=== PATIENT | female | born 2000 | race Caucasian/White ===

== ENCOUNTER 2024-03-28 20:44 | Emergency (ER) | payer BC ==
[2024-03-28 22:07] LABS: APPEARANCE,URINE CLEAR; BILIRUBIN,URINE NEGATIVE (NEGATIVE); COLOR,URINE YELLOW; GLUCOSE,URINE NEGATIVE (NEGATIVE); KETONES,URINE NEGATIVE (NEGATIVE); LEUKOCYTE ESTERASE,URINE NEGATIVE (NEGATIVE); NITRITE,URINE POSITIVE (NEGATIVE); OCCULT BLOOD,URINE NEGATIVE (NEGATIVE); PROTEIN,URINE NEGATIVE (NEGATIVE); UROBILINOGEN,URINE 0.2 EU/dL (<2.0)
[2024-03-28 22:14] LABS: BACTERIA,URINE FEW (NEGATIVE); EPITHELIAL CELLS,URINE OCCASIONAL (NONE-FEW); RBC,URINE 0-1 (0-2/HPF); WBC,URINE 0-3 (0-5/HPF)
[2024-03-29] MEDS: Cefdinir 300 MG Cap PO ONE (00:03)
[2024-03-29] MEDS: Acetaminophen 500 MG Tab PO ONE ×2 (00:07→00:09)
[2024-03-29] MEDS: Ondansetron 4 MG Tab.DIS PO ONE ×2 (00:08→00:09)
== END 2024-03-29 00:11 | disposition home or self-care (01) ==
LOC: MW.ED 20:44
DX: N12 Tubulo-interstitial nephritis, not specified as acute or chronic (principal); Z75.8 Other problems related to medical facilities and other health care
CPT/HCPCS: 81001; 81025; 87086; 99283; A9270; 99284

== ENCOUNTER 2025-06-10 12:14 | Emergency (ER) | payer BC, OTHER ==
[2025-06-10 12:41] LABS: APPEARANCE,URINE CLEAR; GLUCOSE,URINE NEGATIVE (NEGATIVE); OCCULT BLOOD,URINE NEGATIVE (NEGATIVE)
[2025-06-10] MEDS ORDERED: Sodium Chloride 0.9% 10 ML Syringe FLUSH PRN (12:41)
[2025-06-10] MEDS ORDERED: Sodium Chloride 0.9% 2.5 ML Syringe FLUSH PRN (12:41)
[2025-06-10] MEDS: Ondansetron 4 MG/2 ML SDV IVPUSH ONE (13:09)
[2025-06-10 13:21] LABS: BASOPHILS ABSOLUTE AUTO 0.03 K/uL (0.00-0.20); BASOPHILS PERCENT AUTO 0.5 % (0.0-1.0); EOSINOPHILS ABSOLUTE AUTO 0.03 K/uL (0.00-0.45); EOSINOPHILS PERCENT AUTO 0.5 % (0.0-6.0); IMMATURE GRAN ABSOLUTE AUTO 0.01 K/uL (0.00-0.05); IMMATURE GRAN PERCENT AUTO 0.2 % (0.0-0.4); LYMPHOCYTES ABSOLUTE AUTO 1.62 K/uL (1.00-4.80); LYMPHOCYTES PERCENT AUTO 28.5 % (24.0-44.0); MEAN PLATELET VOLUME 9.6 fL (9.4-12.3); MONOCYTES ABSOLUTE AUTO 0.34 K/uL (0.00-0.80); MONOCYTES PERCENT AUTO 6.0 % (0.0-8.0); NEUTROPHILS ABSOLUTE AUTO 3.65 K/uL (1.80-7.70); NEUTROPHILS PERCENT AUTO 64.3 % (41.0-71.0); NRBC ABSOLUTE 0.00 K/uL (0.00-0.02); NRBC PERCENT 0.0 /100WBC (0.0-0.2); PLATELET COUNT,PLT 227 K/uL (150-400); RED BLOOD CELL COUNT 4.00 M/uL (4.10-5.30); WHITE BLOOD CELL COUNT,WBC 5.68 K/uL (3.9-11.3)
[2025-06-10 14:06] LABS: A/G RATIO 1.1 (0.9-1.6); ALANINE AMINOTRANSFERASE,ALT 12 IU/L (14-63); ASPARTATE AMNIOTRANSFERASE,AST 13 IU/L (15-37); BILIRUBIN TOTAL 0.6 mg/dL (0.2-1.0); BLOOD UREA NITROGEN,BUN 9 mg/dL (7.0-18.0); CARBON DIOXIDE,CO2 24.0 mmol/L (21.0-32.0); CHLORIDE,CL 106 mmol/L (98-107); CREATININE 0.8 mg/dL (0.6-1.0); EST CRCL DRUG DOSING (CG) 101.65 mL/min; ESTIMATED GFR 105 mL/min (>60); GLUCOSE RANDOM 73 mg/dL (74-106); POTASSIUM,K 3.6 mmol/L (3.5-5.1); PRO B-TYPE NATRIUR PEPT,BNPPRO 50 pg/mL (0-125); PROTEIN TOTAL,TP 6.9 g/dL (6.4-8.2); SODIUM,NA 138 mmol/L (136-145)
[2025-06-10 14:54] LABS: IRON,FE 142.0 ug/dL (50-175); PERCENT FE SATURATION 36.88 % (20-55)
[2025-06-10 14:54] LABS: AMPHETAMINES SCREEN, URINE NEGATIVE (CUTOFF=500); BUPRENORPHINE SCREEN,URINE NEGATIVE (CUTOFF=10); METHADONE SCREEN, URINE NEGATIVE (CUTOFF=200); METHAMPHETAMINES SCREEN, URINE NEGATIVE (CUTOFF=500); OXYCODONE SCREEN,URINE NEGATIVE (CUT0FF=100); PCP SCREEN,URINE NEGATIVE (CUTOFF=25); THC SCREEN,URINE 20 NG/ML NEGATIVE (CUTOFF=50)
== END 2025-06-10 15:36 | disposition home or self-care (01) ==
LOC: MW.ED 12:14
DX: O99.891 Other specified diseases and conditions complicating pregnancy (principal); R10.30 Lower abdominal pain, unspecified; R46.89 Other symptoms and signs involving appearance and behavior; Z3A.01 Less than 8 weeks gestation of pregnancy
CPT/HCPCS: 36415; 76815; 80053; 80305; 81003; 81025; 83550; 83690; 83735; 83880; 84484; 84702; 85025; 93005; 96361; 96374; 99285; A9270; J2405; J7030

== ENCOUNTER 2025-06-19 10:09 | Emergency (ER) | payer MEDICAID ==
[2025-06-19 10:47] LABS: BASOPHILS ABSOLUTE AUTO 0.01 K/uL (0.00-0.20); BASOPHILS PERCENT AUTO 0.2 % (0.0-1.0); EOSINOPHILS ABSOLUTE AUTO 0.03 K/uL (0.00-0.45); EOSINOPHILS PERCENT AUTO 0.5 % (0.0-6.0); IMMATURE GRAN ABSOLUTE AUTO 0.01 K/uL (0.00-0.05); IMMATURE GRAN PERCENT AUTO 0.2 % (0.0-0.4); LYMPHOCYTES ABSOLUTE AUTO 1.45 K/uL (1.00-4.80); LYMPHOCYTES PERCENT AUTO 25.8 % (24.0-44.0); MEAN PLATELET VOLUME 9.3 fL (9.4-12.3); MONOCYTES ABSOLUTE AUTO 0.29 K/uL (0.00-0.80); MONOCYTES PERCENT AUTO 5.2 % (0.0-8.0); NEUTROPHILS ABSOLUTE AUTO 3.82 K/uL (1.80-7.70); NEUTROPHILS PERCENT AUTO 68.1 % (41.0-71.0); NRBC ABSOLUTE 0.00 K/uL (0.00-0.02); NRBC PERCENT 0.0 /100WBC (0.0-0.2); PLATELET COUNT,PLT 218 K/uL (150-400); RED BLOOD CELL COUNT 4.03 M/uL (4.10-5.30); WHITE BLOOD CELL COUNT,WBC 5.61 K/uL (3.9-11.3)
[2025-06-19 11:05] LABS: APPEARANCE,URINE CLEAR; GLUCOSE,URINE NEGATIVE (NEGATIVE); OCCULT BLOOD,URINE NEGATIVE (NEGATIVE)
[2025-06-19 11:38] LABS: A/G RATIO 1.1 (0.9-1.6); ALANINE AMINOTRANSFERASE,ALT 15.0 IU/L (14-63); ASPARTATE AMNIOTRANSFERASE,AST 12.0 IU/L (15-37); BILIRUBIN TOTAL 0.6 mg/dL (0.2-1.0); BLOOD UREA NITROGEN,BUN 7.0 mg/dL (7.0-18.0); CARBON DIOXIDE,CO2 27.9 mmol/L (21.0-32.0); CHLORIDE,CL 106.0 mmol/L (98-107); CREATININE 0.8 mg/dL (0.6-1.0); EST CRCL DRUG DOSING (CG) 100.07 mL/min; GLUCOSE RANDOM 83.0 mg/dL (74-106); POTASSIUM,K 3.9 mmol/L (3.5-5.1); PROTEIN TOTAL,TP 7.3 g/dL (6.4-8.2); SODIUM,NA 140.0 mmol/L (136-145)
[2025-06-19 11:43] LABS: ESTIMATED GFR 105.0 mL/min (>60)
== END 2025-06-19 13:11 | disposition home or self-care (01) ==
LOC: MW.ED 10:09
DX: O20.0 Threatened abortion (principal); E86.0 Dehydration; Z75.3 Unavailability and inaccessibility of health-care facilities; Z79.899 Other long term (current) drug therapy; Z3A.01 Less than 8 weeks gestation of pregnancy
CPT/HCPCS: 36415; 76817; 76817-26; 80053; 81003; 84702; 85025; 96360; 99284; 99284-25; J7030

== ENCOUNTER 2025-06-25 16:32 | Emergency (ER) | payer MEDICAID ==
[2025-06-25 16:52] LABS: BASOPHILS ABSOLUTE AUTO 0.02 K/uL (0.00-0.20); BASOPHILS PERCENT AUTO 0.3 % (0.0-1.0); EOSINOPHILS ABSOLUTE AUTO 0.05 K/uL (0.00-0.45); EOSINOPHILS PERCENT AUTO 0.8 % (0.0-6.0); IMMATURE GRAN ABSOLUTE AUTO 0.00 K/uL (0.00-0.05); IMMATURE GRAN PERCENT AUTO 0.0 % (0.0-0.4); LYMPHOCYTES ABSOLUTE AUTO 1.46 K/uL (1.00-4.80); LYMPHOCYTES PERCENT AUTO 23.2 % (24.0-44.0); MEAN PLATELET VOLUME 9.6 fL (9.4-12.3); MONOCYTES ABSOLUTE AUTO 0.34 K/uL (0.00-0.80); MONOCYTES PERCENT AUTO 5.4 % (0.0-8.0); NEUTROPHILS ABSOLUTE AUTO 4.41 K/uL (1.80-7.70); NEUTROPHILS PERCENT AUTO 70.3 % (41.0-71.0); NRBC ABSOLUTE 0.00 K/uL (0.00-0.02); NRBC PERCENT 0.0 /100WBC (0.0-0.2); PLATELET COUNT,PLT 245 K/uL (150-400); RED BLOOD CELL COUNT 4.05 M/uL (4.10-5.30); WHITE BLOOD CELL COUNT,WBC 6.28 K/uL (3.9-11.3)
[2025-06-25 17:05] LABS: GLUCOSE,URINE NEGATIVE (NEGATIVE); OCCULT BLOOD,URINE LARGE (NEGATIVE)
[2025-06-25 17:07] LABS: APPEARANCE,URINE HAZY
[2025-06-25 17:08] LABS: EPITHELIAL CELLS,URINE OCCASIONAL (NONE-FEW)
[2025-06-25] MEDS: Ondansetron 4 MG/2 ML SDV IVPUSH ONE (17:36)
== END 2025-06-25 19:36 | disposition home or self-care (01) ==
LOC: MW.ED 16:32
DX: O36.4XX0 Maternal care for intrauterine death, not applicable or unspecified (principal); Z79.899 Other long term (current) drug therapy
CPT/HCPCS: 36415; 76801; 81001; 84702; 85025; 86900; 86901; 87086; 96361; 96372; 96374; 99284; J2405; J2791; J7030